=== PATIENT | female | born 1935 | race Caucasian/White ===

== ENCOUNTER → 2016-09-05 | Outpatient (CLI) | payer OTHER ==
[2016-09-05 18:13] LABS: BLOOD UREA NITROGEN 25 mg/dl (7-18); BUN/CREATININE RATIO 20.8 (10-20); CALCIUM 9.2 mg/dl (8.5-10.1); CARBON DIOXIDE 28 mmol/L (21-32); CHLORIDE 105 mmol/L (98-107); GLUCOSE 116 mg/dl (70-99); POTASSIUM 4.1 mmol/L (3.5-5.1); SODIUM 143 mmol/L (136-145)
[2016-09-05 18:22] LABS: INR 2.4 (0.9-1.1)
[2016-09-05 18:24] LABS: ALT/SGPT 19 U/L (12-78); THYROID STIMULATING HORMONE 0.617 uIu/ml (0.300-4.500)
== END | disposition home or self-care (01) ==
LOC: C.LABMFLN 13:35
PROVIDERS: ATTEND Family Medicine
DX: I10 Essential (primary) hypertension (principal); E11.9 Type 2 diabetes mellitus without complications; R06.09 Other forms of dyspnea; I48.91 Unspecified atrial fibrillation; E03.9 Hypothyroidism, unspecified